=== PATIENT | male | born 1980 | race Caucasian/White ===

== ENCOUNTER 2019-03-02 06:35 | Day surgery (SDC) | payer OTHER, MEDICARE, MEDICAID ==
[~2019-03-02] VITALS: Ht 172.7 cm; Wt 69.5 kg
[2019-03-02] MEDS ORDERED: FentaNYL CITRATE-PF 100 MCG/2 ML VIAL IVP ONE (06:36)
[2019-03-02] MEDS ORDERED: ONDANSETRON HCL 4 MG/2 ML VIAL IVP ONE (06:36)
[2019-03-02] MEDS ORDERED: LIDOCAINE/PF 2% 5 ML VIAL IM ONE (06:36)
[2019-03-02] MEDS ORDERED: DEXAMETHASONE SOD PHOS 4 MG/ML VIAL IVP ONE (06:36)
[2019-03-02] MEDS ORDERED: SUCCINYLCHOLINE CHLORIDE 20 MG/ML 10 ML VIAL IVP ONE (06:36)
[2019-03-02] MEDS ORDERED: PROPOFOL 1% 20 ML VIAL IVP ONE (06:36)
[2019-03-02] MEDS ORDERED: RINGERS SOLUTION,LACTATED 1,000 ML IV ONE (07:00)
[2019-03-02] MEDS ORDERED: LOPE2 PO (07:18)
[2019-03-02] MEDS ORDERED: DSS100 PO (07:18)
[2019-03-02] MEDS ORDERED: OLAN10TA3 PO (07:18)
[2019-03-02] MEDS ORDERED: OLAN5TAB2 PO (07:18)
[2019-03-02] MEDS ORDERED: FLUV50 PO (07:18)
[2019-03-02] MEDS ORDERED: LORA2TAB2 PO (07:18)
[2019-03-02] MEDS ORDERED: DIPH50 PO (07:18)
[2019-03-02] MEDS ORDERED: ACET-2247 PO (07:18)
[2019-03-02] MEDS ORDERED: CALC500T7 PO (07:18)
[2019-03-02] MEDS ORDERED: BENZ2TAB10 PO (07:18)
[2019-03-02] MEDS ORDERED: GUAIF10 PO (07:18)
[2019-03-02 07:36] LABS: ANION GAP 9 mmol/L (8-16); CALCIUM, TOTAL 9.1 mg/dL (8.8-10.5); CARBON DIOXIDE 26 mmol/L (22-29); CHLORIDE 106 mmol/L (98-107); CREATININE 0.67 mg/dL (0.60-1.30); GLOMERULAR FILTR. RATE CALC > 60 mL/min (>60); GLUCOSE,RANDOM 90 mg/dL (70-110); SODIUM SERUM 141 mmol/L (136-145); UREA NITROGEN, BLOOD 16 mg/dL (7-18)
[2019-03-02 07:38] LABS: ALANINE AMINOTRANSFERASE 34 U/L (12-78); ALBUMIN 3.9 g/dL (3.4-5.0); ALKALINE PHOSPHATASE 85 U/L (46-116); ASPARTATE AMINOTRANSFERASE 44 U/L (15-37); BILIRUBIN,TOTAL 0.4 mg/dL (0.1-1.0); TOTAL PROTEIN, SERUM 7.6 g/dL (6.4-8.2)
[2019-03-02 07:40] LABS: BASOPHILS % (AUTO) 0.6 % (0.0-2.0); EOSINOPHILS % (AUTO) 4.6 % (1.0-6.0); HEMATOCRIT 38.1 % (41-53); HEMOGLOBIN 13.2 g/dL (13.5-17.5); LYMPHOCYTES # (AUTO) 1.6 K/uL (1.0-4.8); LYMPHOCYTES % (AUTO) 29.8 % (22.0-44.0); MEAN CORPUSCULAR HEMOGLOBIN 28.6 pg (26.0-34.0); MEAN CORPUSCULAR HGB CONC 34.6 G/dL (31.0-37.0); MEAN CORPUSCULAR VOLUME 83 fL (80-100); MONOCYTES # (AUTO) 0.5 K/uL (0.1-1.0); MONOCYTES % (AUTO) 8.5 % (2.0-9.0); NEUTROPHILS # (AUTO) 3.1 K/uL (1.8-7.7); NEUTROPHILS % (AUTO) 56.5 % (40.0-70.0); PLATELET COUNT (AUTO) 195 K/uL (150-450); RED BLOOD CELL COUNT(AUTO) 4.61 MIL/uL (4.50-5.90); RED CELL DISTRIBUTION WIDTH 13.9 % (11.5-14.5)
[2019-03-02 07:45] LABS: INR 1.1 (0.9-1.1); PROTHROMBIN TIME 11.1 SEC (9.4-11.6)
[2019-03-02] MEDS ORDERED: AMPICILLIN SODIUM 1 GM/VIAL ONE (09:01)
[2019-03-02] MEDS ORDERED: MEPERIDINE-PF 25 MG/ML VIAL IVP PRN (09:15)
[2019-03-02] MEDS ORDERED: FentaNYL CITRATE-PF 100 MCG/2 ML VIAL IVP PRN (09:15)
[2019-03-02] MEDS ORDERED: HYDROmorphone 2 MG/ML SYRINGE IVP PRN (09:15)
[2019-03-02] MEDS ORDERED: OXYGEN THERAPY IH SCH (20:00)
== END 2019-03-02 10:40 | disposition home or self-care (01) ==
LOC: SURGERY 06:35
PROVIDERS: ATTEND Dentist General Practice
DX: K05.30 Chronic periodontitis, unspecified (principal); D64.9 Anemia, unspecified; K59.00 Constipation, unspecified; K21.9 Gastro-esophageal reflux disease without esophagitis; G40.909 Epilepsy, unspecified, not intractable, without status epilepticus; E78.5 Hyperlipidemia, unspecified; Z79.899 Other long term (current) drug therapy; F84.0 Autistic disorder
CPT/HCPCS: 36415; 41899; 71045; 80053; 85025; 85610; 85730; 93005; J0290; J0330; J1100; J2405; J2704; J3010; J3490; J7120